=== PATIENT | female | born 1980 | race Caucasian/White ===

== ENCOUNTER → 2017-04-27 | Outpatient (CLI) | payer OTHER ==
[~2017-04-27] MED LIST: QUASENSE 0.15-1 EACH PO
== END | disposition disaster alternative care site (69) ==
LOC: GBCOE 04-22 10:00 → GRAD 04-22 10:30 → GBCOE 09:06
DX: N63 Unspecified lump in breast (principal); N60.02 Solitary cyst of left breast; Z91.89 Other specified personal risk factors, not elsewhere classified
CPT/HCPCS: G0204; G0279